=== PATIENT | male | born 1990 | race Caucasian/White ===

== ENCOUNTER 2016-12-29 21:00 | Emergency (ER) | payer OTHER ==
[~2016-12-29] VITALS: Ht 172.7 cm; Wt 81.6 kg
[2016-12-29 22:39] LABS: BASOPHILS % (AUTO) 0.3 % (0.0-2.0); DIFF TOTAL % 100 %; EOSINOPHILS % (AUTO) 0.4 % (0.0-6.0); HEMATOCRIT 47 % (39-51); HEMOGLOBIN 15.8 g/dL (13.5-17.5); LYMPHOCYTES # (AUTO) 1.3 /CMM (0.8-4.8); LYMPHOCYTES % (AUTO) 11.4 % (20.0-44.0); MEAN CORPUSCULAR HEMOGLOBIN 30 PG (26.0-33.0); MEAN CORPUSCULAR HGB CONC 34 g/dl (31.0-36.0); MEAN CORPUSCULAR VOLUME 89 fL (80-96); MONOCYTES # (AUTO) 1.2 /CMM (0.1-1.30); MONOCYTES % (AUTO) 10.3 % (2.0-12.0); NEUTROPHILS % (AUTO) 77.6 % (43.0-81.0); PLATELET COUNT (AUTO) 135 /CMM (150-450); RED BLOOD CELL COUNT(AUTO) 5.28 MIL/uL (4.5-6.0); WHITE BLOOD COUNT (AUTO) 11.6 K/uL (4.3-11.0)
[2016-12-29 22:40] LABS: ANION GAP 12 (5-14); CALCIUM, SERUM 9.4 mg/dL (8.5-10.1); CARBON DIOXIDE 28 mmol/L (21-32); CHLORIDE 102 mmol/L (98-107); CREATININE 1.4 mg/dL (0.6-1.3); GFR 61 mL/min (>60); GLUCOSE 91 mg/dL (74-106); POTASSIUM 3.8 mmol/L (3.5-5.1); SODIUM SERUM 138 mmol/L (136-145); UREA NITROGEN, BLOOD 27 mg/dL (7-18)
[2016-12-29 22:46] LABS: ALANINE AMINOTRANSFERASE 35 U/L (12-78); ALBUMIN 4.1 g/dL (3.4-5.0); ASPARTATE AMINOTRANSFERASE 28 U/L (15-37); BILIRUBIN,DIRECT 0.1 mg/dL (0.0-0.2); BILIRUBIN,TOTAL 0.4 mg/dL (0.2-1.0); INDIRECT BILIRUBIN 0.3 mg/dL (0.0-1.1); TOTAL PROTEIN, SERUM 7.8 g/dL (6.4-8.2)
[2016-12-29] MEDS ORDERED: IV SET PRIMARY 1 EA INFUS.SET MC ONE (22:47)
[2016-12-29] MEDS ORDERED: IV NS 0.9% 1,000 ML ONE (22:47)
[2016-12-29] MEDS ORDERED: IV NS 0.9% 1,000 ML BAG IV ONE (23:00)
[2016-12-29 23:39] LABS: PHENCYCLIDINE SCREEN,URINE NEGATIVE (NEGATIVE)
[2016-12-29 23:40] LABS: CANNABINOID, URINE POSITIVE (NEGATIVE)
[2016-12-29 23:59] VITALS: BP 122/73
[2016-12-30] MEDS ORDERED: ACETAMINOPHEN ES 500 MG TABLET ONE
[2016-12-30] MEDS ORDERED: ACETAMINOPHEN 325 MG TABLET PO ONE
== END 2016-12-30 00:08 | disposition home or self-care (01) ==
LOC: ER 21:01
DX: R56.9 Unspecified convulsions (principal); F19.10 Other psychoactive substance abuse, uncomplicated
CPT/HCPCS: 36415; 70450; 71010; 80048; 80076; 80305; 82962; 85025; 93005; 96360; 99285; A4606; G0480; J7030; Z7610

== ENCOUNTER 2017-04-17 18:31 | Emergency (ER) | payer OTHER ==
[~2017-04-17] VITALS: Ht 177.8 cm; Wt 108.9 kg
--- NOTE | 2017-04-17 18:46 | NUR ---
pt bibra to er bed 11 accompanied by pd. per report pt is suicidal. pt denies he is. states he is depressed but not suicidal. denies pain or any discomfort. stable vitals. awaiting md ferreira.
--- NOTE | 2017-04-17 19:05 | NUR ---
dr colón at bedside for eval.
[2017-04-17 19:11] LABS: APPEARANCE,URINE Clear (CLEAR); BILIRUBIN,URINE Negative (NEGATIVE); BLOOD, URINE Negative Ery/uL (NEGATIVE); COLOR,URINE Yellow (YELLOW); KETONES,URINE Negative (NEGATIVE); LEUKOCYTE ESTERASE ,URINE Negative (NEGATIVE); NITRITE, URINE Negative (NEGATIVE); PH,URINE 5.5 (5.0-8.0); PROTEIN,URINE Negative (NEGATIVE); UGLUCOSE Negative (NEGATIVE); UROBILINOGEN,URINE 0.2 EU/dL (0.2)
[2017-04-17 19:20] LABS: BASOPHILS # (AUTO) 0.3 /CMM (0.0-0.2); BASOPHILS % (AUTO) 2.4 % (0.0-2.0); EOSINOPHILS # (AUTO) 0.5 /CMM (0.0-0.7); EOSINOPHILS % (AUTO) 4.4 % (0.0-6.0); HEMATOCRIT 48 % (39-51); HEMOGLOBIN 16.4 g/dL (13.5-17.5); LYMPHOCYTES # (AUTO) 2.3 /CMM (0.8-4.8); LYMPHOCYTES % (AUTO) 21.6 % (20.0-44.0); MEAN CORPUSCULAR HEMOGLOBIN 31 PG (26.0-33.0); MEAN CORPUSCULAR HGB CONC 34 g/dl (31.0-36.0); MEAN CORPUSCULAR VOLUME 91 fL (80-96); MONOCYTES # (AUTO) 0.6 /CMM (0.1-1.30); MONOCYTES % (AUTO) 5.6 % (2.0-12.0); NEUTROPHILS # (AUTO) 7.1 /CMM (1.8-8.9); PLATELET COUNT (AUTO) 168 /CMM (150-450); RDW COEFFICIENT OF VARIATION 11.1 (11.5-15.0); RED BLOOD CELL COUNT(AUTO) 5.35 MIL/uL (4.5-6.0); WHITE BLOOD COUNT (AUTO) 10.8 K/uL (4.3-11.0)
--- NOTE | 2017-04-17 19:37 | NUR ---
CALLED [facility] FOR PSYCH EVAL, ETA 1 HOUR
[2017-04-17 19:40] LABS: ALANINE AMINOTRANSFERASE 27 U/L (12-78); ALBUMIN 3.8 g/dL (3.4-5.0); ALCOHOL, BLOOD 53 mg/dL (0-0); ALKALINE PHOSPHATASE 86 U/L (46-116); ASPARTATE AMINOTRANSFERASE 30 U/L (15-37); BILIRUBIN,DIRECT 0.1 mg/dL (0.0-0.2); BILIRUBIN,TOTAL 0.4 mg/dL (0.2-1.0); CALCIUM, SERUM 8.6 mg/dL (8.5-10.1); CARBON DIOXIDE 25 mmol/L (21-32); CHLORIDE 104 mmol/L (98-107); CREATININE 1.1 mg/dL (0.6-1.3); GLUCOSE 113 mg/dL (74-106); POTASSIUM 3.7 mmol/L (3.5-5.1); SODIUM SERUM 142 mmol/L (136-145); TOTAL PROTEIN, SERUM 7.6 g/dL (6.4-8.2); UREA NITROGEN, BLOOD 21 mg/dL (7-18)
[2017-04-17 19:44] LABS: ACETAMINOPHEN < 2 ug/ml (10-30); SALICYLATE < 2.8 mg/dL (2.8-20.0)
--- NOTE | 2017-04-17 20:26 | NUR ---
justine rn at bedside for psych eval.
--- NOTE | 2017-04-17 20:48 | NUR ---
medically and psych cleared. d/c home in stable condition.
[2017-04-17 20:50] VITALS: BP 128/76
== END 2017-04-17 20:51 | disposition home or self-care (01) ==
LOC: ER 18:34
DX: F32.9 Major depressive disorder, single episode, unspecified (principal); F12.10 Cannabis abuse, uncomplicated; F14.10 Cocaine abuse, uncomplicated
CPT/HCPCS: 36415; 80048-TC; 80076-TC; 80305; 81000-TC; 85025-TC; A4606; G0480; Z7610

== ENCOUNTER 2018-11-03 21:35 | Emergency (ER) | payer MEDICAID, OTHER ==
[~2018-11-03] VITALS: Ht 177.8 cm; Wt 108.9 kg
--- NOTE | 2018-11-03 21:39 | NUR ---
PT [id number] WITH MOTHER, FOUND CYANOTIC, UNRESPONSIVE, AGONAL RESP, GIVEN 2MG NARCAN OTOLARYNGOLOGY TEACHER. PT IS AAOX4, ABLE TO RECALL EVENTS, DENIES SI/HI, RESPIRATIONS EVEN AND UNLABORED, NO SOB, NAD, VSS, ON MONITOR, PENDING MD ESTRADA
[2018-11-03 22:31] LABS: LYMPHOCYTES # (AUTO) 1.7 /CMM (0.8-4.8); MONOCYTES # (AUTO) 1.1 /CMM (0.1-1.30)
--- NOTE | 2018-11-03 22:39 | NUR ---
urine collected. dropped off to lab.
[2018-11-03 22:40] LABS: CALCIUM, SERUM 8.7 mg/dL (8.5-10.1); CARBON DIOXIDE 32 mmol/L (21-32); CHLORIDE 101 mmol/L (98-107); CREATININE 1.3 mg/dL (0.6-1.3); GLUCOSE 112 mg/dL (74-106); SODIUM SERUM 140 mmol/L (136-145); UREA NITROGEN, BLOOD 23 mg/dL (7-18)
[2018-11-03 22:46] LABS: ALANINE AMINOTRANSFERASE 60 U/L (12-78); ALBUMIN 3.7 g/dL (3.4-5.0); ALCOHOL, BLOOD < 3 mg/dL (0-0); ALKALINE PHOSPHATASE 72 U/L (46-116); ASPARTATE AMINOTRANSFERASE 54 U/L (15-37); BILIRUBIN,DIRECT 0.1 mg/dL (0.0-0.2); BILIRUBIN,TOTAL 0.3 mg/dL (0.2-1.0); SALICYLATE 3.8 mg/dL (2.8-20.0)
[2018-11-03 22:48] LABS: ACETAMINOPHEN 0 ug/ml (10-30)
[2018-11-03 22:53] LABS: BASOPHILS % (AUTO) 0.2 % (0.0-2.0); HEMATOCRIT 44 % (39-51); HEMOGLOBIN 15.3 g/dL (13.5-17.5); LYMPHOCYTES % (AUTO) 18.1 % (20.0-44.0); MEAN CORPUSCULAR HGB CONC 35 g/dl (31.0-36.0); MEAN CORPUSCULAR VOLUME 94 fL (80-96); MONOCYTES % (AUTO) 11.9 % (2.0-12.0); NEUTROPHILS # (AUTO) 6.4 /CMM (1.8-8.9); NEUTROPHILS % (AUTO) 68.8 % (43.0-81.0); PLATELET COUNT (AUTO) 141 /CMM (150-450); RED BLOOD CELL COUNT(AUTO) 4.67 MIL/uL (4.5-6.0); WHITE BLOOD COUNT (AUTO) 9.4 K/uL (4.3-11.0)
[2018-11-03 23:08] LABS: APPEARANCE,URINE CLEAR (CLEAR); BILIRUBIN,URINE NEGATIVE (NEGATIVE); BLOOD, URINE NEGATIVE Ery/uL (NEGATIVE); COLOR,URINE YELLOW (YELLOW); KETONES,URINE NEGATIVE (NEGATIVE); LEUKOCYTE ESTERASE ,URINE NEGATIVE (NEGATIVE); NITRITE, URINE NEGATIVE (NEGATIVE); PH,URINE 6.5 (5.0-8.0); PROTEIN,URINE NEGATIVE (NEGATIVE); UGLUCOSE NEGATIVE (NEGATIVE); UROBILINOGEN,URINE 0.2 EU/dL (0.2)
--- NOTE | 2018-11-03 23:41 | NUR ---
Patient is resting comfortably in bed with eyes closed. Easily aroused. VSS
--- NOTE | 2018-11-03 23:52 | NUR ---
received endorsement from ASMITA Marie. Pt is resting comfortably in bed. No s/s of acute distress or sob noted. Respirations even and unlabored. Pt is under ER observation for now. Family sitting at bedside.
--- NOTE | 2018-11-04 | NUR ---
REPORT GIVEN TO ASMITA BUCHANAN FOR ASIA
[2018-11-04 02:38] VITALS: BP 131/78
== END 2018-11-04 02:39 | disposition home or self-care (01) ==
LOC: ER 21:39
DX: T43.621A Poisoning by amphetamines, accidental (unintentional), initial encounter (principal); F19.10 Other psychoactive substance abuse, uncomplicated; F32.9 Major depressive disorder, single episode, unspecified; Y92.89 Other specified places as the place of occurrence of the external cause
CPT/HCPCS: 36415; 80048-TC; 80076-TC; 80305; 81000-TC; 85025-TC; A4606; G0480; Z7610

== ENCOUNTER 2019-02-01 23:07 | Emergency (ER) | payer MEDICAID, OTHER ==
[~2019-02-01] VITALS: Ht 177.8 cm; Wt 108.4 kg
--- NOTE | 2019-02-01 23:24 | NUR ---
PT'S MOTHER IS AT THE BEDSIDE.
[2019-02-01] MEDS: IV NS 0.9% 1,000 ML BAG IV ONE (23:30)
--- NOTE | 2019-02-01 23:33 | NUR ---
EKG DONE AT THE BEDSIDE. POURER IS AT THE BEDSIDE FOR A BLOOD DRAW.
[2019-02-01 23:44] LABS: BASOPHILS % (AUTO) 0.4 % (0.0-2.0); EOSINOPHILS % (AUTO) 8.8 % (0.0-6.0); HEMATOCRIT 46 % (39-51); HEMOGLOBIN 15.5 g/dL (13.5-17.5); LYMPHOCYTES # (AUTO) 1.9 /CMM (0.8-4.8); LYMPHOCYTES % (AUTO) 20.6 % (20.0-44.0); MEAN CORPUSCULAR HGB CONC 34 g/dl (31.0-36.0); MEAN CORPUSCULAR VOLUME 94 fL (80-96); MONOCYTES # (AUTO) 0.8 /CMM (0.1-1.30); MONOCYTES % (AUTO) 8.7 % (2.0-12.0); NEUTROPHILS # (AUTO) 5.6 /CMM (1.8-8.9); NEUTROPHILS % (AUTO) 61.5 % (43.0-81.0); PLATELET COUNT (AUTO) 94 /CMM (150-450); RED BLOOD CELL COUNT(AUTO) 4.83 MIL/uL (4.5-6.0); WHITE BLOOD COUNT (AUTO) 9.1 K/uL (4.3-11.0)
[2019-02-01 23:47] LABS: CALCIUM, SERUM 8.5 mg/dL (8.5-10.1); CARBON DIOXIDE 27 mmol/L (21-32); CHLORIDE 102 mmol/L (98-107); CREATININE 1.7 mg/dL (0.6-1.3); GLUCOSE 135 mg/dL (74-106); POTASSIUM 3.3 mmol/L (3.5-5.1); SODIUM SERUM 137 mmol/L (136-145); UREA NITROGEN, BLOOD 22 mg/dL (7-18)
[2019-02-01 23:52] LABS: ALANINE AMINOTRANSFERASE 40 U/L (12-78); ALBUMIN 3.8 g/dL (3.4-5.0); ALCOHOL, BLOOD < 3 mg/dL (0-0); ALKALINE PHOSPHATASE 81 U/L (46-116); ASPARTATE AMINOTRANSFERASE 38 U/L (15-37); BILIRUBIN,DIRECT 0.1 mg/dL (0.0-0.2); BILIRUBIN,TOTAL 0.4 mg/dL (0.2-1.0); SALICYLATE 5.3 mg/dL (2.8-20.0); TOTAL PROTEIN, SERUM 6.8 g/dL (6.4-8.2)
[2019-02-01 23:55] LABS: ACETAMINOPHEN 0 ug/ml (10-30)
[2019-02-02 00:20] LABS: EOSINOPHILS % (MANUAL) 7 % (0-4); LYMPHOCYTES % (MANUAL) 15 % (16-48); MONOCYTES % (MANUAL) 11 % (0-11.0); NEUTROPHILS % (MANUAL) 67 (42-76)
--- NOTE | 2019-02-02 00:55 | NUR ---
PT APPEARS TO BE RESTING COMFORTABLY WITH NO S/S OF PAIN OR DISRESS.
--- NOTE | 2019-02-02 01:20 | NUR ---
BILL PAGED FOR PSYCHIATRIC EVALUTATION
--- NOTE | 2019-02-02 02:31 | NUR ---
CALLED NURSING SUP FOR A TAXI VOUCHER. PT AND HIS MOTHER CAME [facility] AND DO NOT HAVE A WAY TO GET HOME AT THIS HOUR.
--- NOTE | 2019-02-02 02:33 | NUR ---
BILL [facility] FOR PSYCHIATRIC EVALUATION
[2019-02-02] MEDS ORDERED: ONDANSETRON 4 MG TAB.RAPDIS ONE (02:46)
--- NOTE | 2019-02-02 02:50 | NUR ---
PT WAS BEING D/C'D HOME AND PT BECAME NAUSEATED. PT VOMITTED X1. PT WAS TAKEN TACK TO ER #4 AND MD NOTIFIED. NEW ORDERS WERE GIVEN AND CARRIED OUT.
[2019-02-02] MEDS: ONDANSETRON 4 MG TAB.RAPDIS SL ONE (02:51)
[2019-02-02 03:12] VITALS: BP 129/88
== END 2019-02-02 03:10 | disposition home or self-care (01) ==
LOC: ER 23:08
DX: F19.10 Other psychoactive substance abuse, uncomplicated (principal); F32.9 Major depressive disorder, single episode, unspecified; R94.31 Abnormal electrocardiogram [ECG] [EKG]
CPT/HCPCS: 36415; 71045; 80048; 80076; 80307; 80329; 85025; 93005; 99284; G0480; J7030; Q0162

== ENCOUNTER 2019-06-12 22:31 | Emergency (ER) | payer MEDICAID ==
[~2019-06-12] VITALS: Ht 177.8 cm; Wt 90.7 kg
--- NOTE | 2019-06-12 22:45 | NUR ---
TO BED 2 BIB EMS C/O OXYCONTIN OVERDOSE (UNK AMT). PT FOUND BY ROOMMATE AND CALLED 911. PT WAS GIVEN NARCAN 1MG BY EMS SANDBLASTER SUPERVISOR. RECEIVED PT AAOX3, NO ACUTE DISTRESS NOTED, RESP EVEN AND UNLABORED. PLACE PT ON CARDIAC MONITORING, CONTINUOUS POX. PENDING ER MD ESTRADA.
--- NOTE | 2019-06-12 22:53 | NUR ---
NOTED PT VOMITING. ER MD MADE AWARE.
--- NOTE | 2019-06-12 23:00 | NUR ---
PT AAOX4 NO ACUTE DISTRESS NOTED, RESP EVEN AND UNLABORED. PT DENIES HI OR SI AT THIS TIME. PT REPORTS TAKING OXYCONTIN 30MG PO AND DRANK 2 BOTTLES OF BEERS. WILL CONTINUE TO MONITOR PT CLOSELY.
[2019-06-13 00:12] LABS: BASOPHILS % (AUTO) 0.3 % (0.0-2.0); EOSINOPHILS % (AUTO) 0.3 % (0.0-6.0); HEMATOCRIT 42 % (39-51); HEMOGLOBIN 14.7 g/dL (13.5-17.5); LYMPHOCYTES # (AUTO) 0.8 /CMM (0.8-4.8); LYMPHOCYTES % (AUTO) 7.5 % (20.0-44.0); MEAN CORPUSCULAR HGB CONC 35 g/dl (31.0-36.0); MEAN CORPUSCULAR VOLUME 94 fL (80-96); MONOCYTES # (AUTO) 1.1 /CMM (0.1-1.30); NEUTROPHILS # (AUTO) 8.9 /CMM (1.8-8.9); NEUTROPHILS % (AUTO) 81.9 % (43.0-81.0); PLATELET COUNT (AUTO) 143 /CMM (150-450); RED BLOOD CELL COUNT(AUTO) 4.48 MIL/uL (4.5-6.0); WHITE BLOOD COUNT (AUTO) 10.9 K/uL (4.3-11.0)
[2019-06-13 00:26] LABS: ALBUMIN 3.7 g/dL (3.4-5.0); BILIRUBIN,DIRECT 0.1 mg/dL (0.0-0.2); BILIRUBIN,TOTAL 0.2 mg/dL (0.2-1.0); CALCIUM, SERUM 8.3 mg/dL (8.5-10.1); CREATININE 1.3 mg/dL (0.6-1.3); SALICYLATE 3.9 mg/dL (2.8-20.0); TOTAL PROTEIN, SERUM 6.7 g/dL (6.4-8.2)
--- NOTE | 2019-06-13 00:43 | NUR ---
PT FATHER THOMAS [phone].
--- NOTE | 2019-06-13 01:02 | NUR ---
pt asleep, easily arousable, no acute distress noted, resp even and unlaobred. call light within reach. will continue to monitor pt closely.
--- NOTE | 2019-06-13 02:08 | NUR ---
pt asleep, no acute distress noted, resp even and unlabored. call lig within reach. will continue to monitor pt closely.
[2019-06-13] MEDS ORDERED: ONDANSETRON HCL/PF 4 MG/2 ML VIAL ONE (02:39)
--- NOTE | 2019-06-13 02:41 | NUR ---
NOTED PT VOMITING, ER MD MADE AWARE WITH ORDERS RECEIVED. WILL CARRY OUT ORDERS.
--- NOTE | 2019-06-13 02:46 | NUR ---
PT MEDICATED ORDERED.
--- NOTE | 2019-06-13 04:50 | NUR ---
EMMIE BHATT AT BEDSIDE TALKING TO PT. PT REMAINS CALM AND COOPERATIEV AT THIS TIME. PT DENIES SI OR HI. WILL CONTINUE TO MONITOR PT CLOSELY.
[2019-06-13 04:52] LABS: APPEARANCE,URINE Clear (CLEAR); BILIRUBIN,URINE SMALL (NEGATIVE); BLOOD, URINE Negative Ery/uL (NEGATIVE); COLOR,URINE Yellow (YELLOW); KETONES,URINE Negative (NEGATIVE); LEUKOCYTE ESTERASE ,URINE Negative (NEGATIVE); NITRITE, URINE Negative (NEGATIVE); PH,URINE 5.5 (5.0-8.0); PROTEIN,URINE 30 mg/dl (NEGATIVE); UGLUCOSE Negative (NEGATIVE); UROBILINOGEN,URINE 0.2 EU/dL (0.2)
[2019-06-13] MEDS ORDERED: ONDANSETRON HCL/PF - ER 4 MG/2 ML VIAL IV ONE (05:00)
[2019-06-13] MEDS ORDERED: IV NS 0.9% 1,000 ML BAG IV ONE (05:00)
--- NOTE | 2019-06-13 05:03 | NUR ---
SUPERVISOR WEAVING AT BEDSIDE FOR BLOOD DRAW.
[2019-06-13 05:18] LABS: BACTERIA,URINE Few /HPF (None Seen); MUCUS,URINE Few /LPF (None Seen); RBC,URINE 0-2 /HPF (0-2); SQUAMOUS EPITHELIAL CELL,UR Rare /HPF (None Seen); WBC,URINE 0-2 /HPF (0-3)
[2019-06-13 05:24] LABS: ALBUMIN 3.4 g/dL (3.4-5.0); BILIRUBIN,DIRECT 0.1 mg/dL (0.0-0.2); BILIRUBIN,TOTAL 0.3 mg/dL (0.2-1.0); TOTAL PROTEIN, SERUM 6.2 g/dL (6.4-8.2)
--- NOTE | 2019-06-13 06:02 | NUR ---
IV removed. Catheter intact and site benign. Pressure and 4x4 applied to site. No bleeding noted. Patient discharged to home in stable condition. Written and verbal after care instructions given. Patient verbalizes understanding of instruction. ambulatory with a steady gait noted. pt aaox4 no acute distress noted, resp even and unlabored. advice pt not to drive or operate any machinery due to drug use. pt verbalize understanding. pt ambulatory to the waiting room to wait for dad to pick him up.
[2019-06-13 06:04] VITALS: BP 134/72
== END 2019-06-13 06:04 | disposition home or self-care (01) ==
LOC: ER 22:38
DX: T40.601A Poisoning by unspecified narcotics, accidental (unintentional), initial encounter (principal); F11.10 Opioid abuse, uncomplicated; F32.9 Major depressive disorder, single episode, unspecified; Y92.89 Other specified places as the place of occurrence of the external cause
CPT/HCPCS: 36415; 80048; 80076 ×2; 80305; 80307; 80329 ×2; 81001; 85025; 96374; 99283; G0480 ×2; J2405; J7030; 81000-TC

== ENCOUNTER 2020-07-30 19:30 | Inpatient (IN) | payer MEDICAID ==
[~2020-07-30] VITALS: Ht 177.8 cm; Wt 117.5 kg
--- NOTE | 2020-07-30 19:30 | NUR ---
DANA 89 FROM HOME FOR OVERDOSE ON OCYCODONE AND POSSIBLE FENTANYL. DENIED SI. NARCAN 4MG IV GIVEN AGRICULTURAL AIRCRAFT PILOT; pt to bed 4, aaox4, -sob, on simple mask o2. pt vss. nad noted. pending er provider jhon
--- NOTE | 2020-07-30 19:55 | NUR ---
myles construction electrician at bs; pt sat 90 on simple mask, placedon non-rbr 15l.
[2020-07-30] MEDS ORDERED: IV NS 0.9% 1,000 ML BAG IV ONE (20:00)
[2020-07-30 20:12] LABS: BASOPHILS # (AUTO) 0.1 /CMM (0.0-0.2); BASOPHILS % (AUTO) 0.4 % (0.0-2.0); EOSINOPHILS % (AUTO) 3.1 % (0.0-6.0); HEMATOCRIT 40 % (39-51); HEMOGLOBIN 13.3 g/dL (13.5-17.5); LYMPHOCYTES # (AUTO) 1.6 /CMM (0.8-4.8); LYMPHOCYTES % (AUTO) 12.8 % (20.0-44.0); MEAN CORPUSCULAR HGB CONC 33 g/dl (31.0-36.0); MEAN CORPUSCULAR VOLUME 92 fL (80-96); MONOCYTES % (AUTO) 7.7 % (2.0-12.0); NEUTROPHILS # (AUTO) 9.4 /CMM (1.8-8.9); PLATELET COUNT (AUTO) 163 /CMM (150-450); RED BLOOD CELL COUNT(AUTO) 4.37 MIL/uL (4.5-6.0); WHITE BLOOD COUNT (AUTO) 12.3 K/uL (4.3-11.0)
--- NOTE | 2020-07-30 20:18 | NUR ---
FATHER, THOMAS [phone]
[2020-07-30] MEDS ORDERED: CLINDAMYCIN IV RTU IN D5W 900 MG/50 ML PIGGYBACK IV ONE (21:00)
[2020-07-30] MEDS ORDERED: ALBUTEROL FS 2.5 MG/3 ML VIAL.NEB CONTNEB ONE (21:00)
[2020-07-30] MEDS ORDERED: CEFTRIAXONE 1GM BAG (ER ONLY) 1 GM/50 ML PIGGYBACK IV ONE (21:00)
[2020-07-30] MEDS ORDERED: IPRATROPIUM NEB FS 0.5 MG/2.5 ML AMPUL.NEB NEB ONE (21:00)
[2020-07-30 21:03] LABS: CALCIUM, SERUM 7.8 mg/dL (8.5-10.1); CARBON DIOXIDE 28 mmol/L (21-32); CHLORIDE 102 mmol/L (98-107); CREATININE 1.7 mg/dL (0.6-1.3); GLUCOSE 127 mg/dL (74-106); POTASSIUM 3.4 mmol/L (3.5-5.1); SODIUM SERUM 140 mmol/L (136-145); UREA NITROGEN, BLOOD 20 mg/dL (7-18)
--- NOTE | 2020-07-30 21:07 | NUR ---
JERRICA SWABBED AND SENT TO LAB
[2020-07-30 21:17] LABS: ALANINE AMINOTRANSFERASE 158 U/L (12-78); ALBUMIN 3.1 g/dL (3.4-5.0); ALKALINE PHOSPHATASE 47 U/L (46-116); ASPARTATE AMINOTRANSFERASE 122 U/L (15-37); BILIRUBIN,DIRECT 0.1 mg/dL (0.0-0.2); BILIRUBIN,TOTAL 0.2 mg/dL (0.2-1.0); TOTAL PROTEIN, SERUM 6.7 g/dL (6.4-8.2)
[2020-07-30 21:20] LABS: ACETAMINOPHEN < 2 ug/ml (10-30); ALCOHOL, BLOOD < 3 mg/dL (0-0); SALICYLATE 0.8 mg/dL (2.8-20.0)
[2020-07-30] MEDS ORDERED: IPRATROPIUM NEB FS 0.5 MG/2.5 ML AMPUL.NEB ONE (21:21)
[2020-07-30] MEDS ORDERED: ALBUTEROL FS 2.5 MG/3 ML VIAL.NEB ONE (21:21)
[2020-07-30 21:31] LABS: ABG BASE EXCESS 0.2 mmol/L; ABG OXYGEN SATURATION 95.9 % (92.0-98.5); ABG PCO2 54.8 mmHg (35.0-45.0); ABG PH 7.317 (7.350-7.450); ABG PO2 90.4 mmHg (75.0-100.0); AaDO2 567.8 mmHg; COHb 0.8 % (0.5-1.5); MetHb 0.5 % (0.0-1.5); O2Hb 94.7 % (94.0-97.0); SITE, ABG Right Radial; VENT MODE, BG 15 LNRB
[2020-07-30] MEDS ORDERED: CEFTRIAXONE 1GM BAG (ER ONLY) 50 ML IV ONE (21:32)
[2020-07-30] MEDS ORDERED: CLINDAMYCIN 900 MG/6 ML VIAL ONE (21:32)
--- NOTE | 2020-07-30 22:00 | NUR ---
jim perales updated with pt's clincals will call back from poss approval
--- NOTE | 2020-07-30 22:15 | NUR ---
DR BLUE ON THE LINE FOR A DR TO
--- NOTE | 2020-07-30 22:26 | NUR ---
AUTH TO BE ADMITTED.
--- NOTE | 2020-07-30 22:27 | NUR ---
FATHER CALLED AND REPORTED HE FOUND THE BUBBLE PACK OF ETIZOLAM 2MG IN THE PT'S ROOM WHICH IS MISSING TWO PILLS BUT PT DENIED TAKING THEM TONIGHT
[2020-07-30] MEDS ORDERED: POTASSIUM CHLORIDE 20 MEQ TAB.PRT.SR PO ONE (23:00)
--- NOTE | 2020-07-30 23:02 | NUR ---
REPORT GIVEN VILLA TIAN FOR ASIA; PT WILL BE TRANSPORTED TO 1ST FLOOR
[2020-07-30] MEDS ORDERED: CLONIDINE HCL 0.1 MG TABLET PO PRN (23:30)
[2020-07-30] MEDS ORDERED: Potassium Chloride 10 MEQ in IV D5/0.45 NACL 1,000 ML IV PRN (23:30)
--- NOTE | 2020-07-30 23:47 | NUR ---
PT WAS TRANSFERRED TO 101 UNDER ACLS
[2020-07-31] VITALS: BP 126/51
[2020-07-31] MEDS ORDERED: PIPERACILLIN /TAZOBACTAM 3.375 G in IV D5W 50 ML IV SCH ×2
[2020-07-31] MEDS: ACETAMINOPHEN 325 MG TABLET PO PRN ×2 (00:09→16:25)
--- NOTE | 2020-07-31 00:15 | NUR ---
0015 DR CAVAZOS WAS UPDATED ON PATIENT CONDITION WITH ORDER TO UPGRADE STATUS TO ERASMO. ORDER NOTED AND CARRIED OUT.
--- NOTE | 2020-07-31 00:25 | NUR ---
0025 DR CAVAZOS CHANGED IVF ORDER TO D51/2 NS WITH 20 MEQ KCL TO RUN AT 100ML/HR. ORDER NOTED AND CARRIED OUT.
[2020-07-31 00:43] LABS: ABG BASE EXCESS -0.5 mmol/L; ABG OXYGEN SATURATION 95.5 % (92.0-98.5); ABG PCO2 50.1 mmHg (35.0-45.0); ABG PH 7.334 (7.350-7.450); ABG PO2 79.8 mmHg (75.0-100.0); AaDO2 583.1 mmHg; COHb 0.8 % (0.5-1.5); MetHb 0.4 % (0.0-1.5); O2Hb 94.4 % (94.0-97.0); SITE, ABG Right Radial; VENT MODE, BG Hi Flow 60L 100%
--- NOTE | 2020-07-31 00:50 | NUR ---
0050 DR CAVAZOS WAS NOTIFIED OF REPEAT ABG RESULT WITH ORDER TO DO ANOTHER ABG IN AM. ORDER NOTED. RT KRUGER MADE AWARE.
[2020-07-31] MEDS ORDERED: PIPERACILLIN /TAZOBACTAM 3.375 G VIAL IV ONE ×2 (01:01→06:41)
[2020-07-31] MEDS ORDERED: IV PREMIX D5 1/2NS + KCL 1,000 ML IV ONE (01:05)
[2020-07-31] MEDS: PIPERACILLIN /TAZOBACTAM 3.375 G in IV D5W 50 ML IV SCH ×2 (01:28→06:49)
[2020-07-31] MEDS: Potassium Chloride 20 MEQ in IV D5/0.45 NACL 1,000 ML IV PRN ×2 (01:38→12:17)
--- NOTE | 2020-07-31 03:24 | NUR ---
RN notes Admitted a 30 yr old male from ER via stretcher accompanied by 2 staff with diagnosis of overdose from oxycodone/fentanyl. On high flow, noted with shortness of breath and difficulty of breathing using accessory muscles. Heart rate 124bpm, temperature 100.8, O2sat 93-96%. Alert, drowsy and lethargic but easy to arouse, verbally able to communicate. Lung sound diminished upon auscultation. Cooling measures provided. Tylenol given. Temp went down to 100. No complaint of pain as of this time. Continuous monitoring done. Started IV zosyn and D5 1/2 NS with 20meq KCL, tolerated well. No adverse effect noted. Kept clean and dry. At 03:00, heart rate went down to 105, temp 99.8. Patient sleeping with no physical manifestation of pain or discomfort.
[2020-07-31 04:00] VITALS: BP 130/71
--- NOTE | 2020-07-31 06:33 | NUR ---
ERASMO RN NOTE PT IN BED ASLEEP. BREATHING EVEN AND UNLABORED ON HIGH FLOW NASAL CANNULA AT 60L. TOLERATING WELL. O2 SATURATION AT 96%. NO S/S OF PAIN OR DISCOMFORT. LEFT AC #18 PATENT AND INTACT. D5 1/2 NS WITH 20MEQ KCL INFUSING WELL AT 100ML/HR. TOLERATING WELL. BED IN LOWEST POSITION. CALL LIGHT WITHIN REACH. ALL NEEDS RENDERED. WILL ENDORSE TO AM NURSE FOR CONTINUITY OF CARE.
[2020-07-31 06:51] LABS: BASOPHILS % (AUTO) 0.1 % (0.0-2.0); EOSINOPHILS % (AUTO) 0.2 % (0.0-6.0); HEMATOCRIT 41 % (39-51); HEMOGLOBIN 13.4 g/dL (13.5-17.5); LYMPHOCYTES # (AUTO) 0.6 /CMM (0.8-4.8); LYMPHOCYTES % (AUTO) 5.5 % (20.0-44.0); MEAN CORPUSCULAR HGB CONC 33 g/dl (31.0-36.0); MEAN CORPUSCULAR VOLUME 92 fL (80-96); MONOCYTES # (AUTO) 1.2 /CMM (0.1-1.30); MONOCYTES % (AUTO) 10.3 % (2.0-12.0); NEUTROPHILS # (AUTO) 9.6 /CMM (1.8-8.9); NEUTROPHILS % (AUTO) 83.9 % (43.0-81.0); PLATELET COUNT (AUTO) 189 /CMM (150-450); RED BLOOD CELL COUNT(AUTO) 4.41 MIL/uL (4.5-6.0); WHITE BLOOD COUNT (AUTO) 11.4 K/uL (4.3-11.0)
[2020-07-31 07:19] LABS: ALBUMIN 2.7 g/dL (3.4-5.0); BILIRUBIN,TOTAL 0.4 mg/dL (0.2-1.0); CALCIUM, SERUM 7.3 mg/dL (8.5-10.1); CREATININE 1.6 mg/dL (0.6-1.3); MAGNESIUM 1.9 mg/dL (1.8-2.4); POTASSIUM 4.8 mmol/L (3.5-5.1); TOTAL PROTEIN, SERUM 6.2 g/dL (6.4-8.2)
[2020-07-31 08:00] VITALS: BP 111/58
--- NOTE | 2020-07-31 08:00 | NUR ---
ERASMO RN NOTE: PT in bed. AxOx4. On High Flow 60L/min, 100%, oxygen saturation 94%. Pt on Tele Monitor, ST 104, Pt has LAC on IV fluids, New IV HL 22g RAC inserted with good blood return. Bed in lowest and locked position. Plan of care discussed with patient. Call light within reach. Able to eat breakfast well. Will continue to monitor.
--- NOTE | 2020-07-31 08:36 | NUR ---
ERASMO RN NOTE: DR. Levy at bedside, Potassium 4.8, BUN 20, Cr 1.6, Ok to continue D51/2 with 20 of potassium at this time. At this time, Pt wishes to go home to attend court, per his statement. RT at bedside, ABG done, Result will be referred to . Pt now on 50 L/min per Dr. Levy's order. Oxygen saturation 87%. Will report to .
[2020-07-31 08:38] LABS: ABG BASE EXCESS 0.7 mmol/L; ABG OXYGEN SATURATION 99.2 % (92.0-98.5); ABG PCO2 46.9 mmHg (35.0-45.0); ABG PO2 149.8 mmHg (75.0-100.0); AaDO2 516.3 mmHg; COHb 0.9 % (0.5-1.5); O2Hb 98.3 % (94.0-97.0); SITE, ABG Right Radial; VENT MODE, BG 100% VIA HIGH FLOW
[2020-07-31] MEDS: ENOXAPARIN SODIUM 40 MG/0.4 ML DISP.SYRIN SQ SCH (09:01)
--- NOTE | 2020-07-31 09:02 | NUR ---
placed into simple mask @ 8 lpm o2 flow. spo2 90 - 93% titrate fio2 equal or greater than 90% per dr. hastings. Addendum: 07/31/20 at 0904 by REEMA GRIMES RT Amended: Links added.
[2020-07-31] MEDS ORDERED: TRAZ-257 PO (09:21)
--- NOTE | 2020-07-31 09:36 | NUR ---
telehealth nurse note per dr darling roque to place simple mask 8 l of 02 for now saturation 91% at this time ct pulmonary angiogram consent signed
[2020-07-31] MEDS ORDERED: CT SWABBABLE VALVE TRANS SET 1 EA INFUS.SET MC ONE (09:46)
[2020-07-31] MEDS ORDERED: IOHEXOL-350 100 ML VIAL IV ONE (09:46)
[2020-07-31] MEDS ORDERED: IV NS 0.9% 250 ML IV ONE (09:46)
--- NOTE | 2020-07-31 10:09 | NUR ---
television news producer note ct angio done as ordered ,all needs attended will cont to monitor
[2020-07-31] MEDS: PIPERACILLIN /TAZOBACTAM 3.375 G in IV D5W 100 ML IV SCH ×2 (10:14→17:00)
[2020-07-31 12:00] VITALS: BP 125/64
--- NOTE | 2020-07-31 14:09 | NUR ---
TRUST MANAGER NOTE SPOKE WITH DR CAVAZOS NOTIFIED THAT PATIENT HAS BLOOD SPUTUM WHEN COUGHING, RESULT CT PULMONARY REPORTED TO DR CAVAZOS , STATED RELATED TO PNA ,ALL NEEDS ATTENDED , ICE CHIPS OFFERED WILL CONT TO MONITOR
[2020-07-31 15:36] LABS: ABG OXYGEN SATURATION 90.1 % (92.0-98.5); ABG PCO2 42.8 mmHg (35.0-45.0); ABG PH 7.387 (7.350-7.450); ABG PO2 55.3 mmHg (75.0-100.0); AaDO2 274.8 mmHg; MetHb 0.1 % (0.0-1.5); O2Hb 89.1 % (94.0-97.0); SITE, ABG Right Radial; VENT MODE, BG SIMPLE MASK
--- NOTE | 2020-07-31 15:45 | NUR ---
ABG RESULT RELAYED TO DR. CAVAZOS AND ORDERED TO CHANGE TO HI FLOW ,NO PULMONARY CONSULT FOR NOW AND WANTED PT. BACK ON ERASMO STATUS.WILL COTINUE TO MONITOR.
--- NOTE | 2020-07-31 15:49 | NUR ---
pt. is awake and follow commands placed back into high flow @ 80% fio2 due to 55 PaO2 and 91% SpO2. dr. hastings and charge nurse aware on changes. Addendum: 07/31/20 at 1550 by REEMA GRIMES RT Amended: Links added.
--- NOTE | 2020-07-31 15:50 | NUR ---
PRIMARY RN AWARE OF PLAN OF CARE.
[2020-07-31 16:00] VITALS: BP 128/71
--- NOTE | 2020-07-31 16:00 | NUR ---
ERASMO RN NOTE NOTED LABORED REPARATION, CALLED RT, PLACED BACK TO HIGH FLOW OF 02 80L\ MIN AND DR CAVAZOS AWARE OF PATIENT CONDITION. ALSO ABG DONE EARLIER BY RT ,REPORTED RESULT TO DR CAVAZOS
--- NOTE | 2020-07-31 16:46 | NUR ---
ERASMO RN NOTE T 100.2 TYLENOL GIVEN AND COOLING MEASURE PROVIDED
--- NOTE | 2020-07-31 18:45 | NUR ---
ERASMO RN NOTE: Pt in bed in lowest locked position. Currently on high flow oxygen 60 L/min 80%, oxygen saturation at 93%. Pt's needs addressed. Pt wishes to be discharged, MD aware. Pt able to use urinal. On tele monitor, Pt has been tachy in the 100's. Pt to continue on IV fluids as ordered. Plan of care discussed with patient. Will continue to monitor.
--- NOTE | 2020-07-31 19:55 | NUR ---
ERASMO RN NOTE RECEIVED PT IN BED. AWAKE A/0 X4. BREATHING EVEN AND UNLABORED IN HIGH FLOW NASAL CANNULA 60L/MIN 80%. 02 SATURATION 94%. DENIES ANY PAIN OR DISCOMFORT. LAC #18 Iv PATENT AND INTACT. MEDICATION INFUSING WELL. RAC IV LINE PATENT AND INTACT. ALL NEEDS RENDERED. BED IN LOWEST POSITION. WILL CONTINUE TO MONITOR.
[2020-07-31 20:00] VITALS: BP 120/69
[2020-07-31] MEDS ORDERED: diphenhydrAMINE HCL ELIX 25 MG/10 ML UDC PO PRN (21:00)
[2020-08-01] VITALS: BP 116/63
[2020-08-01] MEDS: Potassium Chloride 20 MEQ in IV D5/0.45 NACL 1,000 ML IV PRN (01:26)
[2020-08-01] MEDS: PIPERACILLIN /TAZOBACTAM 3.375 G in IV D5W 100 ML IV SCH (02:32)
[2020-08-01 04:00] VITALS: BP 120/60
--- NOTE | 2020-08-01 06:00 | NUR ---
ERASMO RN NOTE SPOKE WITH LAB TODAY AND RECEIVED PRELIMINARY RESULT FOR BLOOD CULTURE. GRAM POSITIVE COCCI IN CLUSTERS SEEN ON GRAM STAIN. NOTIFIED DR. CAVAZOS OF LAB RESULT WITH NNO NOTED. WILL ENDORSE TO NEXT SHIFT FOR CONTINUITY OF CARE.
--- NOTE | 2020-08-01 06:21 | NUR ---
ERASMO RN NOTE PT IN BED. ASLEEP BUT EASILY AROUSABLE. BREATHING EVEN AND UNLABORED. NO SOB OR ACUTE DISTRESS NOTED SINUS TACHY ON MONITOR HR 105. HIGH FLOW 02 NC TOLERATING WELL . DENIES ANY PAIN OR DISCOMFORT. LAC #18 DISCONTINUED DUE TO PATIENT ACCIDENTALLY PULLED OUT. NO BLEEDING NOTED. ALL NEEDS RENDERED. BED IN LOWEST POSITION. CALL LIGHT WITHIN REACH. WILL ENDORSE TO AM NURSE FOR CONTINUITY OF CARE.
[2020-08-01 06:30] LABS: BASOPHILS % (AUTO) 0.2 % (0.0-2.0); EOSINOPHILS % (AUTO) 3.7 % (0.0-6.0); HEMATOCRIT 40 % (39-51); HEMOGLOBIN 13.1 g/dL (13.5-17.5); LYMPHOCYTES # (AUTO) 0.9 /CMM (0.8-4.8); LYMPHOCYTES % (AUTO) 7.5 % (20.0-44.0); MEAN CORPUSCULAR HGB CONC 33 g/dl (31.0-36.0); MEAN CORPUSCULAR VOLUME 93 fL (80-96); MONOCYTES # (AUTO) 1.3 /CMM (0.1-1.30); MONOCYTES % (AUTO) 11.1 % (2.0-12.0); NEUTROPHILS # (AUTO) 9.2 /CMM (1.8-8.9); NEUTROPHILS % (AUTO) 77.5 % (43.0-81.0); PLATELET COUNT (AUTO) 182 /CMM (150-450); RED BLOOD CELL COUNT(AUTO) 4.28 MIL/uL (4.5-6.0); WHITE BLOOD COUNT (AUTO) 11.8 K/uL (4.3-11.0)
[2020-08-01 08:00] VITALS: BP 119/61
--- NOTE | 2020-08-01 08:23 | NUR ---
RN OPENING NOTES: RECEIVED PT IN BED AWAKE A/O X4, PT IS ON HIGH FLOW 70L OXYGEN SATS 96%, ON MONITOR SINUS TACHY, SIGNS OF SOB WHEN USING THE RESTROM AND O2 DROPS WHEN PUT ON NC, NO COMPLAINS OF ANY PAIN, IV SITE WAS LEAKING ON THE RAC A NEW ONE WAS STARTED ON THE LEFT HAND #22, FLUSHED WELL AND INTACT. PTS SAFETY MEASURES MAINTAINED CALL LIGHT WITHIN REACH WILL MONITOR CLOSELY.
[2020-08-01 08:45] LABS: POTASSIUM 4.2 mmol/L (3.5-5.1)
[2020-08-01 08:47] LABS: CALCIUM, SERUM 8.2 mg/dL (8.5-10.1); CREATININE 1.3 mg/dL (0.6-1.3)
--- NOTE | 2020-08-01 09:21 | NUR ---
PATIENT COUGHING ON HI FLOW SEEN AND EVALUATED BY DR. CAVAZOS WITH NEW ORDERS.
--- NOTE | 2020-08-01 09:22 | NUR ---
PLACED PATIENT ON COVID ISO PROTOCOL WHILE AWAITS COVID BED.
--- NOTE | 2020-08-01 09:44 | NUR ---
PLACED G22 BUT PATIENT ACCIDENTALLY PULLED OUT IV AGAIN .PER DR. CAVAZOS PLACED MIDLINE PATIENT WILL NEED WOOD FURNITURE ASSEMBLER ANTIBIOTICS .NURSING SUP MADE AWARE.
--- NOTE | 2020-08-01 09:46 | NUR ---
PER NURSING SUP MIDLINE NURSE COMING AT 1100.
[2020-08-01] MEDS: ENOXAPARIN SODIUM 40 MG/0.4 ML DISP.SYRIN SQ SCH (09:47)
[2020-08-01] MEDS ORDERED: VANCOMYCIN 1.5 GM in IV D5W 500 ML IV SCH (10:00)
[2020-08-01] MEDS ORDERED: PANTOPRAZOLE 40 MG TABLET.DR PO SCH (10:30)
[2020-08-01] MEDS ORDERED: VANCOMYCIN 1 GM in IV D5W 250ml IV SCH ×2 (10:30→18:00)
--- NOTE | 2020-08-01 10:30 | NUR ---
RN NOTES: PT IS BEING TRANSFERRED TO ICU, PT IS IN STABLE CONDTION AT THE MOMENT, BED SIDE REPORT WAS GIVEN, ENDORSED TO THE OTHER NURSE FOR CONTINUATION OF CARE.
--- NOTE | 2020-08-01 10:30 | NUR ---
RN NOTE: Report received from ASMITA Santana. Patient to be transfer to ICU for further observation of condition. Will inform patient about transfer and plan of care.
--- NOTE | 2020-08-01 10:54 | NUR ---
RN NOTE: Patient wanted to go AMA. Was see by Dr. Levy and explained the risks and benefits. Informed decision was made by patient. AMA form was signed. Family was informed by Charge Nurse. Patient will leave via Uber
--- NOTE | 2020-08-01 10:59 | NUR ---
SPOKE WITH PATIENT FATHER REGARDING RISK INCLUDING IF PT. LEAVES AMA AND ALSO AWAITS SWAB PCR COVID PER FATHER HE WILL TRY CONVINCED PATIENT TO STAY.
--- NOTE | 2020-08-01 11:01 | NUR ---
PATIENT SIGNED AMA,DR. CAVAZOS AWARE,NURSING SUP AWARE,WOOL GRADER AWARE,INFECTION CONTROL AWARE.
--- NOTE | 2020-08-01 11:01 | NUR ---
HOME SELF ISOLATION INSTRUCTION PROVIDED.
--- NOTE | 2020-08-01 12:00 | NUR ---
RN note: 1030: Report received from ASMITA Santana. Patient to be transfer to ICU for further observation of condition. Will inform patient about transfer and plan of care. 1040: Patient was visibly and verbally expressed frustration regarding plan of care. PCR test to be done to patient. Explained to patient about protocols of isolation when individual is showing s/sx of COVID-19 and that it will be in place until results come back, if result is negative then isolation precautions will be discontinued. Patient expressed desire to leave facility and self-quarantine at [facility]. Reinforced to patient about his current condition where he needs help of oxygen and antibiotics for treatment and that nurse will page Dr. Levy so that he can make an informed decision. 1054: Patient was seen earlier by Dr. Levy prior to his desire to go AMA. Tele conference was done with patient and Dr. Levy and he explained the risks should patient go AMA. Patient still wants to proceed with AMA and an Informed decision was made by patient. AMA form was signed. Family was informed by Charge Nurse. Patient will leave via Uber. 1130: Patient left facility via uber together with belongings and his visit report, copy of signed belongings form, copy of singned AMAform, instructions and forms and reports on his admission. Information about covid-19 and self-isolation information given to patient. Advised patient to return to the hospital or call 911 if his condition worsens and to call in about 2 days to inquire about his PCR covid-19 swab result. Patient acknowledged information.
== END 2020-08-01 11:40 | disposition left against medical advice (07) | DRG 812 ==
LOC: ER 19:31 → TELE-TD 22:57 → TELE1 07-31 08:58 → TELE-TD 07-31 16:04 → ICU 08-01 09:52 → TELE-TD 08-01 10:54
PROVIDERS: ADMIT Internal Medicine; ATTEND Internal Medicine
DX: T40.601A Poisoning by unspecified narcotics, accidental (unintentional), initial encounter (principal); J96.01 Acute respiratory failure with hypoxia; J69.0 Pneumonitis due to inhalation of food and vomit; F31.9 Bipolar disorder, unspecified; G92 Toxic encephalopathy; E87.2 Acidosis; Y92.009 Unspecified place in unspecified non-institutional (private) residence as the place of occurrence of the external cause; R74.0 Nonspecific elevation of levels of transaminase and lactic acid dehydrogenase [LDH]; F41.9 Anxiety disorder, unspecified; R40.2363 Coma scale, best motor response, obeys commands, at hospital admission; E87.6 Hypokalemia; R40.2133 Coma scale, eyes open, to sound, at hospital admission; R40.2243 Coma scale, best verbal response, confused conversation, at hospital admission; F11.11 Opioid abuse, in remission
CPT/HCPCS: 36415; 36600; 71045-TC; 80048-TC; 80053-TC; 80076-TC; 82803-TC; 83605-TC; 83735-TC; 84484-TC; 85025-TC; 86140-TC; 87040-TC; 87081-TC; 94799-TC; C9803-CS; G0378; G0480; J0696; J1650; J2543; J3370; J3480; J3490; J7030; J7040; J7050; J7060; Q0163; Q9967; U0003-CS